=== PATIENT | male | born 1960 | race African-American/Black ===

== ENCOUNTER 2017-09-26 11:25 | Emergency (ER) | payer SELFPAY ==
[2017-09-26] MEDS ORDERED: Sodium Chloride 0.9% 1,000 ML IV SCH (12:00)
--- NOTE | 2017-09-26 12:45 | EDM.PDOC ---
ED HPI GENERAL MEDICAL PROBLEM - General Chief Complaint: Skin Complaint Stated Complaint: POSSSIBLE CYST IN REACTUM Time Seen by Provider: 09/26/17 12:39 Source of Information: Reports: Patient - History of Present Illness INITIAL COMMENTS - FREE TEXT/NARRATIVE: HISTORY AND PHYSICAL: History of present illness: [Patient presents with early pilonidal cyst formation are symptoms consistent with early pilonidal cyst. He denies previous history of however he does have some tenderness at the proximal gluteal cleft consistent with pilonidal cyst there is no pointing or fluctuance at this time however skin is beginning to be get somewhat indurated there is no redness and mild warmth present no fever nausea vomiting chills sweats patient rates pain 3 out of 10 ] Review of systems: As per history of present illness and below otherwise all systems reviewed and negative. Past medical history: As per history of present illness and as reviewed below otherwise noncontributory. Surgical history: As per history of present illness and as reviewed below otherwise noncontributory. Social history: No reported history of drug or alcohol abuse. Family history: As per history of present illness and as reviewed below otherwise noncontributory. Physical exam: HEENT: Atraumatic, normocephalic, pupils reactive, negative for conjunctival pallor or scleral icterus, mucous membranes moist, throat clear, neck supple, nontender, trachea midline. Lungs: Clear to auscultation, breath sounds equal bilaterally, chest nontender. Heart: S1S2, regular, negative for clicks, rubs, or JVD. Abdomen: Soft, nondistended, nontender. Negative for masses or hepatosplenomegaly. Negative for costovertebral tenderness. Pelvis: Stable nontender. Genitourinary: Deferred. Rectal: Deferred. Extremities: Atraumatic, negative for cords or calf pain. Neurovascular unremarkable. Neuro: Awake, alert, oriented. Cranial nerves II through XII unremarkable. Cerebellum unremarkable. Motor and sensory unremarkable throughout. Exam nonfocal. Skin as per history of present illness otherwise unremarkable Diagnostics: []Lab as below CBC CMP Therapeutics: Cipro 500 by mouth twice a day Flagyl 500 by mouth twice a day Sitz bath Follow-up with general surgery one week, I was going to have him follow up sooner however the patient declines follow-up until after the first one he will have insurance. He is then advised to return if symptoms persist or worsen to the ER Impression: [Early pilonidal cyst formation ] Definitive disposition and diagnosis as appropriate pending reevaluation and review of above. Treatments [employer]: Reports: NSAIDS Left Sacral Pain Score (Numeric/FACES): 8 - Related Data Allergies Allergy/AdvReac Type Severity Reaction Status Date / Time [place] Allergy Facial Uncoded 09/26/17 11:54 Swelling Home Meds: Home Meds HCTZ/Triamterene [Maxzide 25-37.5 MG] 25 - 37.5 PO DAILY 09/26/17 [History] ED ROS GENERAL - Review of Systems Review Of Systems: ROS reveals no pertinent complaints other than HPI. ED EXAM, SKIN/RASH Exam: See Below Course - Vital Signs Last Recorded V/S: Last Vital Signs Temp 97.8 F 09/26/17 11:44 Pulse 98 09/26/17 11:44 Resp 18 09/26/17 11:44 BP 147/98 H 09/26/17 11:44 Pulse Ox 95 09/26/17 11:44 - Orders/Labs/Meds Orders: Active Orders 24 hr Category Date Time Status Abdomen Pelvis w Cont [CT] Stat Exams 09/26/17 11:54 Stop Req COMPREHENSIVE METABOLIC PN,CMP [CHEM] Stat Lab 09/26/17 12:06 Received UA W/MICROSCOPIC [URIN] Stat Lab 09/26/17 11:54 Uncollected Sodium Chloride 0.9% [Normal Saline] 1,000 ml Med 09/26/17 12:00 Active IV STAT Medication Orders Sodium Chloride (Normal Saline) 1,000 mls @ 125 mls/hr IV STAT JAMES Last Admin: 09/26/17 12:11 Dose: 125 mls/hr Labs: Laboratory Tests 09/26/17 09/26/17 Range/Units 12:06 12:06 WBC 14.10 H (4.0-11.0) K/uL RBC 4.68 (4.50-5.90) M/uL Hgb 12.7 L (13.0-17.0) g/dL Hct 37.1 L (38.0-50.0) % MCV 79.3 L (80.0-98.0) fL MCH 27.1 (27.0-32.0) pg MCHC 34.2 (31.0-37.0) g/dL RDW Std Deviation 44.2 (28.0-62.0) fl RDW Coeff of Shania 15 (11.0-15.0) % Plt Count 276 (150-400) K/uL MPV 9.70 (7.40-12.00) fL Neut % (Auto) 62.6 (48.0-80.0) % Lymph % (Auto) 17.0 (16.0-40.0) % [place] % (Auto) 6.7 (0.0-15.0) % Eos % (Auto) 13.3 H (0.0-7.0) % Baso % (Auto) 0.4 (0.0-1.5) % Neut # (Auto) 8.8 H (1.4-5.7) K/uL Lymph # (Auto) 2.4 (0.6-2.4) K/uL [place] # (Auto) 1.0 H (0.0-0.8) K/uL Eos # (Auto) 1.9 H (0.0-0.7) K/uL Baso # (Auto) 0.1 (0.0-0.1) K/uL Nucleated RBC % 0.0 /100WBC Nucleated RBCs # 0 K/uL INR 1.01 (0.86-1.11) Meds: Medications Generic Name Dose Route Start Last Admin Trade Name Freq PRN Reason Stop Dose Admin Sodium Chloride 1,000 mls @ 125 mls/hr 09/26/17 12:00 09/26/17 12:11 Normal Saline IV 125 mls/hr STAT JAMES Administration Departure - Departure Time of Disposition: 12:42 Disposition: Home, Self-Care 01 Condition: Good Clinical Impression: Pilonidal cyst - Discharge Information Referrals: PCP,None [Primary Care Provider] - Additional Instructions: Medication as prescribed Return if symptoms persist or worsen despite antibiotics Sitz baths in warm water daily may help promote drainage Follow-up with general surgery in one week, call number below to gain appropriate follow-up [facility] - [facility] Professional Building [address] [place] [address], [address] [place] [address] The following information is given to patients seen in the emergency department who are being discharged to home. This information is to outline your options for follow-up care. We provide all patients seen in our emergency department with a follow-up referral. The need for follow-up, as well as the timing and circumstances, are variable depending upon the specifics of your emergency department visit. If you don't have a primary care physician on staff, we will provide you with a referral. We always advise you to contact your personal physician following an emergency department visit to inform them of the circumstance of the visit and for follow-up with them and/or the need for any referrals to a consulting specialist. The emergency department will also refer you to a specialist when appropriate. This referral assures that you have the opportunity for follow-up care with a specialist. All of these measure are taken in an effort to provide you with optimal care, which includes your follow-up. Under all circumstances we always encourage you to contact your private physician who remains a resource for coordinating your care. When calling for follow-up care, please make the office aware that this follow-up is from your recent emergency room visit. If for any reason you are refused follow-up, please contact the [facility] emergency department at and asked to speak to the emergency department charge nurse. - My Orders Last 24 Hours: My Active Orders 09/26/17 11:54 Abdomen Pelvis w Cont [CT] Stat UA W/MICROSCOPIC [URIN] Stat 09/26/17 12:00 Sodium Chloride 0.9% [Normal Saline] 1,000 ml IV STAT 09/26/17 12:06 COMPREHENSIVE METABOLIC PN,CMP [CHEM] Stat - Assessment/Plan Last 24 Hours: My Active Orders 09/26/17 11:54 Abdomen Pelvis w Cont [CT] Stat UA W/MICROSCOPIC [URIN] Stat 09/26/17 12:00 Sodium Chloride 0.9% [Normal Saline] 1,000 ml IV STAT 09/26/17 12:06 COMPREHENSIVE METABOLIC PN,CMP [CHEM] Stat
[2017-09-26 12:48] LABS: CHLORIDE,CL 104 mmol/L (98-110); SODIUM,NA 140 mmol/L (136-146)
== END 2017-09-26 13:01 | disposition home or self-care (01) ==
LOC: MW.ED 11:25
DX: L05.91 Pilonidal cyst without abscess (principal)
CPT/HCPCS: 36415; 80053; 85025; 85610; 96360; 99284; J7040; 99283